=== PATIENT | female | born 2000 | race Hispanic/Latino ===

== ENCOUNTER 2024-06-20 19:09 | Emergency (ER) | payer OTHER ==
[~2024-06-20] VITALS: Ht 162.6 cm; Wt 77.1 kg
[2024-06-20 19:52] VITALS: TEMP 98.5
[2024-06-20 20:11] LABS: BASOPHILS # (AUTO) 0.1 (0.0-0.1); BASOPHILS % 0.4 % (0.0-1.0); EOSINOPHILS # (AUTO) 0.1 (0.0-0.4); EOSINOPHILS % 0.4 % (0.0-6.0); HEMATOCRIT 46.4 % (34.2-44.1); HEMOGLOBIN 15.5 g/dL (12.0-16.0); LYMPHOCYTES # (AUTO) 3.3 (1.0-3.2); LYMPHOCYTES % 23.2 % (18.0-39.1); MEAN CORPUSCULAR HEMOGLOBIN 30.3 pg (28-32); MEAN CORPUSCULAR HGB CONC 33.4 g/dL (31-35); MEAN CORPUSCULAR VOLUME 90.6 fL (81-99); MONOCYTES % 6.9 % (4.4-11.3); NEUTROPHILS # (AUTO) 9.7 (2.1-6.9); NEUTROPHILS % 68.8 % (38.7-80.0); PLATELET COUNT 253 x10e3/uL (140-360); RED BLOOD COUNT 5.12 x10e6/uL (3.6-5.1); RED CELL DISTRIBUTION WIDTH 11.5 % (11.7-14.4); WHITE BLOOD COUNT 14.03 x10e3/uL (4.8-10.8)
[2024-06-20 20:15] LABS: AMPHETAMINES SCREEN,URINE NEGATIVE (NEGATIVE); BENZODIAZEPINES SCREEN,URINE NEGATIVE (NEGATIVE); BILIRUBIN,URINE NEGATIVE (NEGATIVE); CANNABINOIDS SCREEN,URINE NEGATIVE (NEGATIVE); CLARITY,URINE CLEAR (CLEAR); COCAINE SCREEN,URINE NEGATIVE (NEGATIVE); COLOR,URINE YELLOW (YELLOW); GLUCOSE, URINE NEGATIVE (NEGATIVE); KETONES,URINE NEGATIVE (NEGATIVE); LEUKOCYTE ESTERASE ,URINE NEGATIVE (NEGATIVE); METHADONE SCREEN, URINE NEGATIVE (NEGATIVE); NITRITE,URINE NEGATIVE (NEGATIVE); OPIATES SCREEN,URINE NEGATIVE (NEGATIVE); PH,URINE 6 (5 - 7); PHENCYCLIDINE SCREEN,URINE NEGATIVE (NEGATIVE); PROTEIN,URINE DIPSTICK NEGATIVE (NEGATIVE); URINE UROBILINOGEN 0.2 mg/dL (0.2 - 1)
[2024-06-20 20:16] LABS: PREGNANCY TEST, URINE NEGATIVE (NEGATIVE)
[2024-06-20 20:27] LABS: BACTERIA,URINE RARE /HPF; EPITHELIAL CELLS,URINE RARE /LPF; RBC,URINE 0-5 /HPF (0-5)
[2024-06-20 20:28] LABS: ALBUMIN 4.5 g/dL (3.5-5.0); ALBUMIN/GLOBULIN RATIO 1.3 (0.8-2.0); ANION GAP 14.3 mmol/L (8-16); BILIRUBIN,TOTAL 0.7 mg/dL (0.2-1.2); CALCIUM 10.3 mg/dL (8.4-10.2); CREATININE, SERUM 0.8 mg/dL (0.57-1.11); POTASSIUM 4.3 mmol/L (3.5-5.1); TOTAL PROTEIN 8.1 g/dL (6.5-8.1)
[2024-06-20] MEDS: SODIUM CHLORIDE 0.9% 1000ML 1,000 ML IV STA (20:50)
[2024-06-20] MEDS: METHYLPREDNISOLONE SOD SUCC 125 MG/2ML VIAL IV STA (20:52)
[2024-06-20] MEDS: KETOROLAC TROMETHAMINE 30 MG/ML VIAL IV STA (20:53)
[2024-06-20] MEDS: METOCLOPRAMIDE HCL 10 MG/2ML VIAL IV STA (20:54)
[2024-06-20] MEDS: DIPHENHYDRAMINE HCL INJ 50 MG/ML VIAL IV STA (20:57)
[2024-06-20 21:00] VITALS: PULSE 65; RESP 17
[2024-06-20] MEDS ORDERED: FIORICET 50-301 EACH PO (21:22)
[2024-06-20 21:51] VITALS: BP 103/57; PULSE 51; RESP 16; TEMP 98.2; O2SAT 100
== END 2024-06-20 21:43 | disposition home or self-care (01) ==
LOC: ER 19:54
DX: R51.9 Headache, unspecified (principal); R20.0 Anesthesia of skin
CPT/HCPCS: 36415; 70450; 80053; 80307; 81001; 81025; 85025; 99284; J1200; J1885; J2765; J2919; J7030